=== PATIENT | male | born 1995 | race Caucasian/White ===

== ENCOUNTER 2018-03-28 18:23 | Emergency (ER) | payer OTHER, SELFPAY ==
[2018-03-28 18:25] VITALS: BP 132/74; PULSE 72; RESP 16; TEMP 36.8; O2SAT 98; BMI 33.2
--- NOTE | 2018-03-28 18:47 | ED.DCSUM_ITS ---
- ER Visit Summary Date of Service: 03/28/18 Chief Complaint: Trauma to the penis and scrotum History of Present Illness: The patient is a 22 M with no primary care physician. He reports that 2 days ago he was using a drill when it slipped and caused an abrasion to his penis and had a right side of his scrotum. He reports that this was 3 3 layers of close. He reports he has a pinching pain 6 out of 10 at worst and is pain-free currently. Pain is worsened by movement. Is relieved by rest and Tylenol. He denies any drainage from the wounds. He states he is not able to take a tetanus shot due to allergies. Physical Examination: Vitals: Stable. Afebrile. General: Well-nourished and well-developed. Head: Normocephalic atraumatic. Neck: Supple, no lymphadenopathy. No JVD. Nontender. Cardiovascular: Regular rate and rhythm. No murmurs. Respiratory: No respiratory distress. Clear to auscultation bilaterally. Abdominal: Soft, nontender, nondistended, normal bowel sounds. No guarding, rebound, or peritoneal signs. : Superficial abrasions to the distal portion of the right side of the shaft of his penis. The glans is not involved. There is no erythema, induration, or warmth. There are also superficial abrasions to the right side of his scrotum. These do not appear to be infected either. Back: Nontender. Extremities: Nontender, no edema. Skin: Normal color, no rash. Neurologic: Alert and oriented ?3. Cranial nerves II through XII are intact. Normal strength and sensation. Psych: Normal affect. Emergency Department Course and Treatment: Patient was reassured. Treatment Plan: Patient will be discharged instructions to continue to use the antibiotic ointment to the area. Follow-up with Dr. Bojorquez in 1 week if not improving. Return to the emergency department for any signs of infection or concerns. Disposition: To home in improved and stable condition. Impression: 1. Abrasions to penis/scrotum. This note was generated with [employer] software. It may contain incorrect words, spelling, and punctuation that were not noted in review of the chart prior to signing ED Disposition - Plan for ED Patient: Disposition: Home or Assisted Living Chief Complaint: Male Pain/Injury Instructions: ED Wound Care Referrals: James Bojorquez MD [STAFF PHYSICIAN] - 1 Week if not improving
[2018-03-28 19:19] VITALS: PULSE 82; RESP 16; O2SAT 98
== END 2018-03-28 19:22 | disposition home or self-care (01) ==
LOC: ED 18:54
PROVIDERS: Emergency Provider Emergency Medicine
DX: S30.812A Abrasion of penis, initial encounter (principal); S30.813A Abrasion of scrotum and testes, initial encounter; W29.8XXA Contact with other powered hand tools and household machinery, initial encounter; Y93.9 Activity, unspecified; Y92.9 Unspecified place or not applicable
CPT/HCPCS: 99282

== ENCOUNTER 2021-01-01 07:17 | Emergency (ER) | payer OTHER, SELFPAY ==
[2021-01-01 07:18] VITALS: BP 139/87; PULSE 76; RESP 18; TEMP 36.6; O2SAT 96; BMI 39.5
--- NOTE | 2021-01-01 07:23 | NURSING ---
NO OLD EKGS
--- NOTE | 2021-01-01 07:46 | EKG12_ITS ---
Test Reason : CP Blood Pressure : / mmHG Vent. Rate : 065 BPM Atrial Rate : 065 BPM P-R Int : 158 ms QRS Dur : 092 ms QT Int : 388 ms P-R-T Axes : 014 060 017 degrees QTc Int : 403 ms Normal sinus rhythm Normal ECG Confirmed by JANICE MUNOZ, HAZEL ([id number]), development editor JAMEY ELIAS ([id number]) on 01/04/2021 11:55:34 AM Referred By: VENICE Confirmed By:HAZEL CAMACHO MD
--- NOTE | 2021-01-01 07:46 | ED.VIS.CHEST ---
HPI History of Present Illness Chief Complaint: Chest Pain Informant: patient and spouse/S.O. Narrative Narrative: 25-year-old male presents the emergency department with chest pressure. Patient states that symptoms began yesterday. He states it was originally over the sternum and today has moved more towards the left side of his chest. Nothing seems to make it better or worse. He denies any shortness of breath. No DVT PE risk factors. Patient's never felt this before. Denies any significant medical problems. PFSH PFS Medical History Collar bone fracture no medical history Home Medications NK 03/28/18 [History Last Taken Unknown] Allergy/AdvReac Type Severity Reaction Status Date / Time acetaminophen [From Vicodin] Allergy Unknown Verified 01/01/21 07:19 gluten Allergy Unknown Verified 01/01/21 07:19 hydrocodone bitartrate Allergy Unknown Verified 01/01/21 07:19 [From Vicodin] Surgical History History of appendectomy Social History (Updated 01/01/21 @ 07:[address] Tyler Hutson DO) Smoking Status: Never smoker substance use type: does not use ROS ROS ED Constitutional Constitutional ED: Denies chills or weight loss Eyes Eyes: Denies change in vision or diplopia ENT ENT ED: Denies ear pain, rhinorrhea or sore throat Cardiovascular Cardiovascular: Reports chest pain; Denies orthopnea, palpitations or racing heartbeat Respiratory/Chest Respiratory/Chest: Denies cough, dyspnea or orthopnea Gastrointestinal Gastrointestinal: Denies abdominal pain, diarrhea, nausea or vomiting Genitourinary Genitourinary ED: Denies dysuria, hematuria or urinary frequency Musculoskeletal Musculoskeletal: Denies arthralgias or myalgias Integumentary Denies abscess or rash Neurologic Neurologic: Denies headache(s) or weakness Psychiatric Psychiatric: Denies anxiety, depression, suicidal ideation or suicidal thoughts Endocrine Endocrinology: Denies polydipsia, polyphagia or polyuria Allergic/Immunologic Allergic/Immunologic ED: Denies mouth swelling, tongue swelling or urticaria EXAM Physical Exam Const Vital Signs: 01/01/21 07:18 01/01/21 07:22 Temperature 97.8 F Temperature Source Temporal Pulse Rate 76 Respiratory Rate 18 Respiratory Effort Normal Non-Labored Blood Pressure 139/87 H Blood Pressure Mean 104 Pulse Ox 96 Oxygen Delivery Method Room Air Positive well nourished and well developed General Appearance ED: well developed HEENT Reports normocephalic, head/scalp atraumatic and moist mucous membranes Eyes PERRL and EOMs intact bilaterally Neck no lymphadenopathy, supple and no JVD Resp normal respiratory effort and clear to auscultation bilaterally Cardio regular rate, regular rhythm and no murmurs GI normal to inspection, nondistended, normoactive bowel sounds and non-tender Palpation: soft Back/Spine no CVA tenderness and normal ROM Extremity normal to inspection General Extremety ED: Negative for edema General Extremity: Negative for edema Neuro oriented x3 and CN's II-XII intact bilaterally Sensorium / Orientation: alert Motor Exam: strength 5/5 throughout Psych mental status grossly normal Mood & Affect: Negative for depressed or tearful Skin no rashes or lesions noted and no wounds Heart Score History: Slightly/Non-Suspicious ECG: Normal Age: </= 45 years Risk Factors: No Risk Factors Troponin: </= Normal Limit Score: 0 MDM MDM MDM Narrative Medical decision making narrative: My interpretation of the chest x-ray is no acute process. CBC BMP D-dimer and troponin negative. The troponin represents greater than 8 hours of constant symptoms. Patient's had no events on the monitor. At this point patient will be discharged home instructions for follow-up return if worsening or concerns Lab Data Labs: Laboratory Results - last 24 hr 01/01/21 01/01/21 01/01/21 07:33 07:33 07:33 WBC 5.7 RBC 5.23 Hgb 16.9 H Hct 48.2 MCV 92.2 MCH 32.3 H MCHC 35.1 RDW Std Deviation 39.8 RDW Coeff of Kenny 11.9 Plt Count 255 MPV 10.8 Immature Gran % (Auto) 0.200 Neut % (Auto) 54.3 Lymph % (Auto) 32.3 [place] % (Auto) 9.5 Eos % (Auto) 2.8 Baso % (Auto) 0.9 Absolute Neuts (auto) 3.1 Absolute Lymphs (auto) 1.83 Nucleated RBC % 0 D-Dimer Quant (PE/DVT) <= 0.27 Sodium 136 Potassium 3.7 Chloride 100 Carbon Dioxide 30.0 Anion Gap 6 BUN 11 Creatinine 1.13 Estim Creat Clear Calc 113.92 Est GFR (MDRD) Af Amer 103 Est GFR (MDRD) Non-Af 85 BUN/Creatinine Ratio 9.7 L Glucose 89 Calcium 9.6 Troponin I High Sens 7 Radiography Diagnostic Testing: Radiology Impression Chest X-Ray 01/01/21 07:50 IMPRESSION: Normal x-ray examination of the chest. Electronically Signed: Lenny Benson MD at 8:32 EDT , Service support , EKG Initial EKG: Interpretation: Sinus Rhythm Comments: Normal sinus rhythm with a ventricular rate of 65 bpm. No concerning features of ACS. Discharge Plan Triage Chief Complaint: Chest Pain ED Provider: Tyler Hutson Dx/Rx/DC Orders Clinical Impression: Chest pain Instructions: ED Chest Pain, Noncardiac Prescriptions: No Action NK RF: 0 Primary Care Provider: Care Physician,No Primary Referrals: Naima Wynn MD [STAFF PHYSICIAN] - 1 Week if not improving (for primary care) Care Physician,No Primary [Primary Care Provider] - Disposition Disposition: Home, Self Care
--- NOTE | 2021-01-01 07:50 | RAD_ITS ---
STUDY: X-RAY CHEST REASON FOR EXAM: Male, 25 years old. Chest pain TECHNIQUE: Single AP portable view of the chest. COMPARISON: None. FINDINGS: EKG electrodes are seen. The lungs are clear and expanded. There is no demonstrated pleural abnormality. Normal size heart. Normal mediastinum and willy. Normal visualized pulmonary arteries. Normal visualized aortic arch and descending thoracic aorta. Normal visualized thoracic spine. Normal visualized ribs, clavicles, and shoulders. There is no demonstrated abnormality of the visualized soft tissue structures of the upper abdomen. RAD/Chest 1 View (Portable) IMPRESSION: Normal x-ray examination of the chest. Electronically Signed: Lenny Benson MD at 8:32 EDT , Service support ,
[2021-01-01 08:02] LABS: Absolute Lymphocyte Count 1.83 X10^3/uL (0.83-4.51); Absolute Neutrophil Count 3.1 X10^3/uL (2.0-7.7); Basophil# 0.05 X10^3/uL; Basophil% 0.9 % (0-1); Eosinophil# 0.16 X10^3/uL; Eosinophils% 2.8 % (0-5); Hematocrit 48.2 % (40-54); Hemoglobin 16.9 g/dL (13.0-16.5); Lymphocyte # 1.83 X10^3/ul (0.83-4.51); Lymphocyte % 32.3 % (19-41); Mean Corp Hgb Conc 35.1 g/dL (32-36); Mean Corpuscular Hgb 32.3 pg (27.0-32.0); Mean Corpuscular Volume 92.2 fL (80-94); Mean Platelet Vol. 10.8 fl (6.2-12.0); Monocyte# 0.54 X10^3/uL; Monocyte% 9.5 % (0-10); NRBC Flagged by Analyzer 0 % (0-5); Neutrophil # 3.08 X10^3/uL (2.7-7.7); Neutrophil % 54.3 % (47-70); Platelet Count 255 K/mm3 (150-450); RBC Distribution Width CV 11.9 % (11.6-14.6); RBC Distribution Width SD 39.8 fl (35.1-43.9); Red Blood Count 5.23 M/mm3 (4.6-6.2); White Blood Count 5.7 K/mm3 (4.4-11.0)
[2021-01-01 08:12] LABS: Anion Gap 6 (5-15); BUN 11 mg/dL (7-18); BUN/Creat Ratio 9.7 RATIO (10-20); Calcium,Total 9.6 mg/dL (8.5-10.1); Chloride 100 mmol/L (98-107); Creatinine, Serum 1.13 mg/dL (0.70-1.30); EST Glomerular Filtration Rate 85 mL/min (>60); Est Glom Filt Rate - Afr Amer 103 mL/min (>60); Estimated Creatinine Clearance 113.92 ml/min; Glucose 89 mg/dL (74-106); Potassium 3.7 mmol/L (3.5-5.1); Sodium Level 136 mmol/L (136-145); Troponin-I HS 7 pg/mL (3.0-78.0)
[2021-01-01 08:13] LABS: D-Dimer Quantitative (DVT/PE) <= 0.27 FEU/ug/m (0.27-0.49)
[2021-01-01 09:23] VITALS: BP 133/93; PULSE 68; RESP 16; O2SAT 97
== END 2021-01-01 09:24 | disposition home or self-care (01) ==
PROVIDERS: Emergency Provider Emergency Medicine
DX: R07.89 Other chest pain (principal)
CPT/HCPCS: 71045; 80048; 84484; 85025; 85379; 93005; 99285; A4216

== ENCOUNTER → 2022-06-29 | Outpatient (CLI) | payer OTHER, SELFPAY ==
[2022-06-29 16:38] LABS: Absolute Lymphocyte Count 2.09 X10^3/uL (0.83-4.51); Absolute Neutrophil Count 4.7 X10^3/uL (2.0-7.7); Basophil# 0.05 X10^3/uL; Basophil% 0.6 % (0-1); Eosinophil# 0.29 X10^3/uL; Eosinophils% 3.7 % (0-5); Hematocrit 44.4 % (40-54); Hemoglobin 15.5 g/dL (13.0-16.5); Lymphocyte # 2.09 X10^3/ul (0.83-4.51); Lymphocyte % 26.9 % (19-41); Mean Corp Hgb Conc 34.9 g/dL (32-36); Mean Corpuscular Hgb 32.5 pg (27.0-32.0); Mean Corpuscular Volume 93.1 fL (80-94); Mean Platelet Vol. 10.7 fl (6.2-12.0); Monocyte# 0.63 X10^3/uL; Monocyte% 8.1 % (0-10); NRBC Flagged by Analyzer 0 % (0-5); Neutrophil % 60.4 % (47-70); Platelet Count 271 K/mm3 (150-450); RBC Distribution Width CV 11.9 % (11.6-14.6); RBC Distribution Width SD 41.3 fl (35.1-43.9); Red Blood Count 4.77 M/mm3 (4.6-6.2); White Blood Count 7.8 K/mm3 (4.4-11.0)
[2022-06-29 17:07] LABS: Vitamin B12 509 pg/mL (211-911); Vitamin D,25 Hydroxy 18.2 ng/mL
[2022-06-29 17:17] LABS: ALB/GLOB Ratio 1.2 RATIO (0.9-2.4); AST(SGOT) 37 U/L (15-37); Alanine Aminotransfer ALT/SGPT 26 U/L (16-61); Albumin, Serum 4.2 g/dL (3.2-5.0); Alkaline Phosphatase 59 U/L (45-117); Anion Gap 7 (5-15); BUN 23 mg/dL (7-18); Calcium,Total 9.6 mg/dL (8.5-10.1); Chloride 107 mmol/L (98-107); Cholesterol 190 mg/dL (200); EST Glomerular Filtration Rate 96 mL/min (>60); Est Glom Filt Rate - Afr Amer 117 mL/min (>60); Globulin 3.4 g/dL (2.2-4.2); Glucose 91 mg/dL (74-106); High Density Lipoprotein 30 mg/dL; Protein, Total 7.6 g/dL (6.4-8.2); Sodium Level 140 mmol/L (136-145); Thyroid Stim Hormone (TSH) 2.05 uIU/mL (0.358-3.74); Triglycerides 293 mg/dL; Very Low Density Lipoprotein 59 mg/dL (5-40)
== END | disposition home or self-care (01) ==
LOC: BIMLAB 15:31
PROVIDERS: PCP Nurse Practitioner Family; Referring Provider Nurse Practitioner Family; Visit Provider Nurse Practitioner Family
DX: Z00.00 Encounter for general adult medical examination without abnormal findings (principal); L20.9 Atopic dermatitis, unspecified; E66.9 Obesity, unspecified; E56.9 Vitamin deficiency, unspecified
CPT/HCPCS: 36415; 80053; 80061; 82306; 82607; 84443; 85025

== ENCOUNTER → 2024-03-04 | Outpatient (CLI) | payer OTHER, SELFPAY | END | disposition home or self-care (01) | LOC: CVS 09:01 | PROVIDERS: Referring Provider Internal Medicine Cardiovascular Disease; Visit Provider Internal Medicine Cardiovascular Disease | DX: R07.9 Chest pain, unspecified (principal) | CPT/HCPCS: 93306 ==

== ENCOUNTER → 2024-03-06 | Outpatient (CLI) | payer SELFPAY ==
--- NOTE | 2024-03-06 15:07 | CT_ITS ---
STUDY: CT CHEST WITHOUT CONTRAST REASON FOR EXAM: Male, 28 years old. CP RADIATION DOSAGE (If Supplied By Facility): CTDIvol = ( 12.19 ) mGy, DLP = ( 219.42 ) mGycm TECHNIQUE: Transaxial imaging was performed without the administration of intravenous contrast material. Cardiac over read examination. Individualized dose optimization techniques were used for this CT. COMPARISON: No relevant priors. FINDINGS: CHEST The lungs are normal. There is no demonstrated pleural abnormality. Normal heart and pericardium. Normal mediastinum. Normal hilar regions. Normal unenhanced pulmonary arteries. Normal aorta arch and descending thoracic aorta. Normal osseous structures. There is no demonstrated abnormality of the visualized upper abdomen. CT/Limited Chest CT Cardiac Only IMPRESSION: Normal unenhanced CT chest. Electronically Signed: Lenny Benson MD at 10:53 EST ,
--- NOTE | 2024-03-06 16:27 | CA.SCORE ---
Calcium Scoring Date of Study:: 03/06/24 Indications Indications: chest pain Coronary Calcium Scoring: High-resolution Computed Tomographic imaging of the chest was performed on [03/06/24 ], with particular attention paid to the coronary arteries. Images from the examination were analyzed for the presence and extent of coronary artery calcification , using coronary calcium quantification software. The patient tolerated the procedure well and there were no complications. The results of the coronary calcification analysis are provided below. Findings Coronary Artery Left Main (LM): 0 Left Anterior Descending (LAD): 0 Left Circumflex (LCX): 0 Right Coronary Artery (RCA): 0 Total Agatston Score: 0 Percentile Rankin% Calcium Scoring Interpretation: Different methods to categorize the overall amount of coronary plaque. Overall amount CAC SIS Visual of coronary plaque P1 Mild -100 <2 1-2 vessels with mild amount of plaque P2 Moderate 101-300 3-4 1-2 vessels with moderate amount, 3 vessels with mild amount of plaque P3 Severe 301-999 5-7 3 vessels with moderate amount, 1 vessel with severe amount of plaque P4 Extensive >1000 >8 2-3 vessels with severe amount of plaque Conclusion: No atherosclerotic plaque noted
== END | disposition home or self-care (01) ==
LOC: CT 15:05
PROVIDERS: Referring Provider Internal Medicine Cardiovascular Disease; Visit Provider Internal Medicine Cardiovascular Disease
DX: R07.9 Chest pain, unspecified (principal)
CPT/HCPCS: 75571; 76380

== ENCOUNTER 2024-04-27 14:48 | Emergency (ER) | payer OTHER, SELFPAY ==
[2024-04-27 14:49] VITALS: PULSE 831; RESP 16; TEMP 36.7; O2SAT 98; BMI 41.0
--- NOTE | 2024-04-27 15:34 | ED.VIS.BACK ---
HPI History of Present Illness Chief Complaint: Back Informant: patient, family and EMS Narrative Narrative: 28-year-old male had a back injury 3 days ago when he was lifting a log, felt acute pain in his low back. It was manageable. Then today he bent over and felt something worsen and the pain is going down into the lateral aspect of his left thigh but not below or to the knee, and he states the lateral aspect of his left thigh feels numb. PFSH PFSH Medical History Chest pain Vitamin deficiency Obesity Atopic dermatitis Collar bone fracture Home Medications ?Medication ?Instructions ?Recorded ?Last Taken ?Type lactobacillus combination no.9 4 PO QDAY 02/07/24 Unknown History billion cell capsule (Adult 50 Plus Probiotic) cyclobenzaprine 10 mg tablet 10 mg PO TID PRN Muscle Spasm #20 04/27/24 Unknown Rx TABLETS naproxen 500 mg tablet 500 mg PO BID PRN #14 tabs 04/27/24 Unknown Rx tramadol 50 mg tablet 50 mg PO Q6H PRN pain 3 days #12 04/27/24 Unknown Rx tabs Allergy/AdvReac Type Severity Reaction Status Date / Time acetaminophen (From Vicodin) Allergy Unknown Verified 02/07/24 12:58 gluten Allergy Unknown Verified 02/07/24 12:58 hydrocodone bitartrate (From Allergy Unknown Verified 02/07/24 12:58 Vicodin) Family History Grandfather Myocardial infarction CAD (coronary artery disease) Grandmother CAD (coronary artery disease) Aunt CAD (coronary artery disease) Mother Afib Hypertension Surgical History History of appendectomy Social History Smoking Status: Never smoker alcohol intake: current alcohol intake frequency: a few times a week substance use type: does not use what type of physical activity do you participate in: weight training frequency: 1-2 times per week ROS ROS ED Constitutional Constitutional ED: Denies chills or fever(s) Gastrointestinal Gastrointestinal: Denies abdominal pain, constipation, fecal incontinence, nausea or vomiting Genitourinary Genitourinary ED: Reports other Details: no urinary retention ; Denies abdominal discomfort or urinary incontinence Musculoskeletal Musculoskeletal: Reports as per HPI and back pain; Denies neck pain Integumentary Denies rash or wounds Neurologic Neurologic: Reports paresthesias LLE; Denies headache(s) or weakness EXAM Physical Exam Const Vital Signs: 04/27/24 14:49 Temperature 98.0 F Temperature Source Oral Pulse Rate 831 H Respiratory Rate 16 Pulse Ox 98 Oxygen Delivery Method Room Air Positive well nourished, well developed and obese General Appearance ED: well developed and NAD Nutritional Appearance: obese HEENT Negative for trauma or tenderness Eyes PERRL and EOMs intact bilaterally Neck full ROM and supple GI normal to inspection, nondistended, normoactive bowel sounds, soft to palpation and non-tender Back/Spine normal to inspection Back/Spine Narrative: Able to do ipsilateral left lower extremity straight leg raise to 45 degrees or more, with no reproduction of radicular symptoms. Lumbar Spine / Lower Back: ROM limited, paraspinal muscle tenderness and straight leg raise negative bilaterally; Negative for lumbar spinal tenderness Extremity normal to inspection, full ROM and no pedal edema Neuro oriented x3 and no sensory deficits noted Sensorium / Orientation: alert Motor Exam: strength 5/5 throughout and clonus absent Deep Tendon Reflexes: Rt Patellar (L4): 1+, Lt Patellar (L4): 1+, Rt Ankle (S1): 1+ and Lt Ankle (S1): 1+ Deep Tendon Reflexes Back: Rt Patellar (L4): 1+, Lt Patellar (L4): 1+, Rt Ankle (S1): 1+ and Lt Ankle (S1): 1+ Plantar Reflex: Downgoing: bilateral Psych mental status grossly normal and thought process normal Skin no rashes or lesions noted and no wounds MDM MDM MDM Narrative Medical decision making narrative: Symptoms suggest the possibility of a peripheral neuropathy the of the lateral cutaneous nerve of the thigh, but he has no findings of an acute radiculopathy, he has no bowel or bladder dysfunction or suggestion of cauda equina syndrome, no MRI is indicated. He has no midline tenderness to suggest the need for x-rays to look for spinal fracture. After Toradol, morphine and prophylactic Zofran, and Norflex, patient is up walking around and doing much better. Supportive care advised, close a patient follow-up as well as prescriptions given for analgesics and muscle relaxer. Discharge Plan Triage Chief Complaint: Back ED Provider: Malcolm Hernandez Dx/Rx/DC Orders Clinical Impression: Acute myofascial strain of lumbosacral region Instructions: ED Back Sprain/Strain Prescriptions: New cyclobenzaprine 10 mg tablet 10 mg PO TID PRN (Reason: Muscle Spasm) Qty: 20 0RF tramadol 50 mg tablet 50 mg PO Q6H PRN (Reason: pain) 3 Days Qty: 12 0RF naproxen 500 mg tablet 500 mg PO BID PRN Qty: 14 0RF No Action Adult 50 Plus Probiotic 4 billion cell capsule PO QDAY Primary Care Provider: Care Physician,No Primary Referrals: Doctor,Your [Non-Staff] - 1 Week if not improving Print Language: Chinese Disposition Disposition: Home, Self Care
[2024-04-27] MEDS: Ondansetron ODT 4 MG Tablet 8 MG PO (15:42)
[2024-04-27] MEDS: Morphine 4 MG/ML Syringe IM (15:44)
[2024-04-27] MEDS: Ketorolac 60 MG/2 ML Vial IM (15:45)
[2024-04-27] MEDS: Orphenadrine 60 MG/2 ML Ampul IM (15:46)
[2024-04-27 18:13] VITALS: BP 137/63; PULSE 72; RESP 15; TEMP 36.9; O2SAT 100
== END 2024-04-27 18:14 | disposition home or self-care (01) ==
PROVIDERS: Emergency Provider Emergency Medicine; Visit Provider Emergency Medicine
DX: S39.012A Strain of muscle, fascia and tendon of lower back, initial encounter (principal); X50.1XXA Overexertion from prolonged static or awkward postures, initial encounter
CPT/HCPCS: 96372; 99284